=== PATIENT | male | born 1995 | race Asian ===

== ENCOUNTER 2020-10-13 23:16 | Emergency (ER) | payer SELFPAY ==
[~2020-10-13] VITALS: Ht 172.7 cm; Wt 64.5 kg
[2020-10-13] MEDS ORDERED: ALBUTEROL/IPRATROPIUM 2.5MG/0.5MG, 3 ML ONE (23:42)
--- NOTE | 2020-10-13 23:49 | NUR ---
PT STATES HE SMOKES MARIJUANA DAILY AND NOTICED BREATHING DIFFICULTY TODAY AFTER DOING IT IN THE MORNIG. PT IN [facility], MEDICATED PER KRISTINE, AND CALL LIGHT WITHIN REACH
[2020-10-14] MEDS ORDERED: ALBUTEROL/IPRATROPIUM 2.5MG/0.5MG, 3 ML NPPB ONE
[2020-10-14 00:29] VITALS: BP 134/95
== END 2020-10-14 00:42 | disposition home or self-care (01) ==
LOC: ED 23:46
DX: J45.21 Mild intermittent asthma with (acute) exacerbation (principal); R00.0 Tachycardia, unspecified; R06.00 Dyspnea, unspecified
CPT/HCPCS: 93005; 94640; 99283; J7512